=== PATIENT | female | born 1945 | race Caucasian/White ===

== ENCOUNTER 2024-02-22 08:25 | Day surgery (SDC) | payer MEDICARE, OTHER ==
--- NOTE | 2024-02-22 08:00 | HP ---
HISTORY OF PRESENT ILLNESS: A 78-year-old, history of Khan's. Needs followup upper endoscopy. 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 HOME MEDICATIONS: Multivitamin, Celebrex, Nexium, amlodipine, Evista, Lipitor. ALLERGIES: No known drug allergies. PAST SURGICAL HISTORY: She had a hysterectomy and an appendectomy in the past. She had endoscopy in the past. SOCIAL HISTORY: No smoking or alcohol abuse. FAMILY HISTORY: Liver disease, Alzheimer's, hypertension, lung disease. REVIEW OF SYSTEMS: Twelve systems reviewed. Pertinent for other medical problems as noted above. No chest pain or palpitations. Other systems negative or noncontributory as above and per preadmission questionnaire. PHYSICAL EXAMINATION: VITAL SIGNS: Height 5 feet 2 inches. BMI 29.08. GENERAL: No acute distress. HEENT: Sclerae nonicteric. Extraocular movements intact. Oral mucous membranes moist. NECK: No JVD. CHEST: Equal excursion, nonlabored breathing. CARDIOVASCULAR: Regular rate and rhythm. ABDOMEN: Soft. EXTREMITIES: No cyanosis or edema. NEUROLOGIC: Alert and oriented, moving all extremities symmetrically. PSYCHIATRIC: Appropriate mood and affect. SKIN: Dry. IMPRESSION: History of Khan esophagus, needs followup upper endoscopy for further evaluation. Risks explained in detail including but not limited to bleeding or infection, risk of bowel injury or perforation, risk of missed or nondiagnosis, risk of incomplete exam possibly requiring barium swallow, other studies or procedures, general risk of anesthesia or sedation. We will proceed with EGD, possible biopsy as an outpatient. Otherwise, continue the medication for hypertension, reflux, lipid, arthritis. We will proceed with EGD, possible biopsy as an outpatient.
[2024-02-22] MEDS ORDERED: Lactated Ringers 1,000 ML IV ONE (08:55)
[2024-02-22] MEDS: Lactated Ringers 1,000 ML IV SCH (08:58)
[2024-02-22 09:21] VITALS: RESP 18
[2024-02-22] MEDS ORDERED: DIPRIVAN 200 MG/20 ML IV ONE (10:02)
[2024-02-22 10:44] VITALS: TEMP 96.9
[2024-02-22 10:59] VITALS: BP 137/62; PULSE 61; O2SAT 100
--- NOTE | 2024-02-23 09:25 | OP ---
SURGERY DATE/TIME: 02/22/2024 1002 1009 PREOPERATIVE DIAGNOSIS: History of Khan's. Needs followup upper endoscopy. POSTOPERATIVE DIAGNOSES: 1) Small ASA class 2. 2) Small gastric fundus polyp. 3) Short segment of salmon-pink mucosa distal esophagus, consistent with history of Khan's. Biopsy pending. PROCEDURE: 1) Esophagogastroduodenoscopy with cold biopsy removal of gastric polyp. 2) Cold biopsy, multiple biopsies distal esophagus to evaluate for Khan's esophagus. SURGEON: Melo Edwards MD ANESTHESIA: MAC. ESTIMATED BLOOD LOSS: Minimal. INDICATIONS: Consent was obtained. DESCRIPTION OF PROCEDURE AND FINDINGS: Patient was taken to the endoscopy room. After official time-out and no disagreement with planned procedure, MAC anesthesia was induced. Bite block positioned. Videogastroscope easily passed down the esophagus through the patent pylorus, through the junction of the third and fourth portions of the duodenum. Duodenum grossly unremarkable. The antrum was grossly unremarkable. No signs of any ulcers or inflammation. A little bit higher up in the fundus, gastric polyp was noted. Cold biopsy removal. Good hemostasis noted. On retroflex, there were no signs of any large hiatal hernia. The GE junction was fairly snugged against the scope. Scope pulled back. The GE junction was about 40 cm. There was about a 2 to 3 mm little segment of one fingerlet of some salmon-pink mucosa seen at the esophagus consistent with prior history of Khan's. Multiple cold biopsies were taken of this area as well as the other more normal-appearing esophageal mucosa adjacent to it. Good hemostasis was noted. Scope was withdrawn. The patient tolerated the procedure well. Findings discussed with family out in the waiting area.
== END 2024-02-22 11:08 | disposition home or self-care (01) ==
LOC: SDC 08:25
PROVIDERS: ATTEND Surgery
DX: Z87.19 Personal history of other diseases of the digestive system (principal); K31.7 Polyp of stomach and duodenum
CPT/HCPCS: 99100; J2704